=== PATIENT | male | born 1970 | race Hispanic/Latino ===

== ENCOUNTER 2017-07-20 15:46 | Inpatient (IN) | payer OTHER ==
[~2017-07-20] VITALS: Ht 162.6 cm; Wt 87.5 kg
[2017-07-20] MEDS ORDERED: ONDANSETRON HCL 4 MG/2 ML VIAL ONE (16:13)
[2017-07-20] MEDS ORDERED: SODIUM CHLORIDE 0.9% 1000ML 1,000 ML IV ONE ×2 (16:13→18:59)
[2017-07-20] MEDS ORDERED: ACETAMINOPHEN 325 MG TAB ONE (16:13)
[2017-07-20 16:14] LABS: BASOPHILS % (AUTO) 0.1 % (0.0-5.0); HEMATOCRIT 43.7 % (42-54); LYMPHOCYTES % (AUTO) 4.3 % (21.0-51.0); MEAN CORPUSCULAR HEMOGLOBIN 31.7 pg (27.0-33.0); MEAN CORPUSCULAR HGB CONC 34.6 g/dL (32.0-36.0); MEAN CORPUSCULAR VOLUME 91.8 fL (79-99); MONOCYTES % (AUTO) 3.8 % (3.0-13.0); NEUTROPHILS % (AUTO) 91.8 % (40.0-77.0); PLATELET COUNT (AUTO) 206 K/uL (130-400); RED BLOOD CELL COUNT(AUTO) 4.76 MIL/uL (4.50-6.20); RED CELL DISTRIBUTION WIDTH 13.1 % (11.0-15.5)
[2017-07-20] MEDS ORDERED: MORPHINE SULFATE 2 MG/ML 1ML SYG ONE ×2 (16:14→16:30)
[2017-07-20 16:30] LABS: CREATININE 0.9 mg/dL (0.5-1.5); POTASSIUM 3.8 mmol/L (3.5-5.1)
[2017-07-20 16:34] LABS: ALBUMIN 4.2 g/dL (3.5-5.0); BILIRUBIN,TOTAL 0.6 mg/dL (0.2-1.0); TOTAL PROTEIN, SERUM 8.4 g/dL (6.0-8.3)
[2017-07-20 16:35] LABS: APPEARANCE,URINE Clear (CLEAR); BILIRUBIN,URINE Negative (NEGATIVE); COLOR,URINE Yellow (YELLOW); GLUCOSE, URINE (UA) Negative (NEGATIVE); KETONES,URINE Trace mg/dL (NEGATIVE); LEUKOCYTE ESTERASE ,URINE Negative (NEGATIVE); NITRATE,URINE Negative (NEGATIVE); OCCULT BLOOD,URINE Small (NEGATIVE); PROTEIN,URINE Negative (NEGATIVE)
[2017-07-20 16:46] LABS: WBC,URINE 0-1 /HPF (0-1)
[2017-07-20 16:47] LABS: BACTERIA,URINE Rare /HPF (None Seen); SQUAMOUS EPITHELIAL CELL,UR Rare /LPF (0-2)
[2017-07-20] MEDS ORDERED: IOPAMIDOL-370 75 ML VIAL IV ONE (16:59)
[2017-07-20] MEDS ORDERED: MEROPENEM 1 GM VIAL ONE (18:25)
[2017-07-20] MEDS ORDERED: HYDRALAZINE HCL 20 MG/ML VIAL IV PRN (22:30)
[2017-07-20] MEDS ORDERED: LIDOCAINE HCL-MPF 1% 2ML VIAL IVP PRN (22:30)
[2017-07-20] MEDS ORDERED: POTASSIUM CHLORIDE 20MEQ/100ML 100 ML IV PRN (22:30)
[2017-07-20] MEDS ORDERED: ONDANSETRON HCL 4 MG/2 ML VIAL IV PRN (22:30)
[2017-07-20] MEDS ORDERED: POTASSIUM CHLORIDE 20 MEQ ERTAB PO PRN (22:30)
[2017-07-20] MEDS ORDERED: POTASSIUM CHLORIDE 10% ELIXIR 20 MEQ/15 ML UDCUP PO PRN (22:30)
[2017-07-20] MEDS ORDERED: MEROPENEM 500MG+NS 50ML 50 ML IV SCH (22:30)
[2017-07-20 22:40] VITALS: BP 133/73
[2017-07-21] VITALS (29 sets, daily range): BP systolic 112–145; BP diastolic 60–88
[2017-07-21] MEDS: SODIUM CHLORIDE 0.9% 1000ML 1,000 ML IV SCH ×4 (00:37→22:04)
[2017-07-21] MEDS: KETOROLAC TROMETHAMINE 30MG/ML IV PRN ×2 (00:45→22:02)
[2017-07-21] MEDS ORDERED: LISI-613 PO (00:51)
[2017-07-21] MEDS ORDERED: ATOR10 PO (00:51)
[2017-07-21 03:56] LABS: CREATININE 0.8 mg/dL (0.5-1.5); MAGNESIUM 1.7 mg/dL (1.80-2.40); POTASSIUM 3.6 mmol/L (3.5-5.1)
[2017-07-21 04:01] LABS: MEAN CORPUSCULAR HGB CONC 34.8 g/dL (32.0-36.0); MEAN CORPUSCULAR VOLUME 91.9 fL (79-99); PLATELET COUNT (AUTO) 175 K/uL (130-400); RED BLOOD CELL COUNT(AUTO) 3.92 MIL/uL (4.50-6.20); RED CELL DISTRIBUTION WIDTH 13.2 % (11.0-15.5); WHITE BLOOD COUNT (AUTO) 11.6 K/uL (4.8-10.8)
[2017-07-21 05:38] LABS: INR 1.01 (0.85-1.15); PARTIAL THROMBOPLASTIN TIME 28.9 SEC (26.3-35.5); PROTHROMBIN TIME 10.6 SEC (9.6-11.6)
[2017-07-21] MEDS ORDERED: MEROPENEM 1 GM VIAL ONE (06:41)
[2017-07-21] MEDS: MORPHINE SULFATE 2 MG/ML 1ML SYG IV PRN (07:52)
[2017-07-21] MEDS ORDERED: MAGNESIUM 2GM PREMIX 50ML 50 ML IV SCH (08:00)
[2017-07-21] MEDS ORDERED: MEROPENEM 500 MG VIAL IVP SCH (08:15)
[2017-07-21] MEDS ORDERED: MAGNESIUM 2GM PREMIX 50ML 50 ML IV PRN (08:15)
[2017-07-21] MEDS: LISINOPRIL 10 MG TABLET PO SCH (08:19)
[2017-07-21] MEDS ORDERED: FAMOTIDINE/PF 20 MG/2 ML VIAL IV SCH (09:00)
[2017-07-21] MEDS ORDERED: DEXAMETHASONE SOD PHOSPHATE 10MG/ML 1ML VIAL ONE (11:57)
[2017-07-21] MEDS ORDERED: ONDANSETRON HCL 4 MG/2 ML VIAL ONE (11:57)
[2017-07-21] MEDS ORDERED: GLYCOPYRROLATE 0.2 MG/ML 5 ML VIAL ONE (11:57)
[2017-07-21] MEDS ORDERED: LIDOCAINE PF 2% 5ML ABBOJECT ONE (11:57)
[2017-07-21] MEDS ORDERED: NEOSTIGMINE METHYLSULFATE 1MG/ML IV ONE (11:57)
[2017-07-21] MEDS ORDERED: PROPOFOL 10 MG/ML 20ML VIAL IV ONE (11:57)
[2017-07-21] MEDS ORDERED: FENTANYL CITRATE PF 50 MCG/1 ML 2ML VIAL ONE ×3 (11:57→13:15)
[2017-07-21] MEDS ORDERED: SUCCINYLCHOLINE 200MG/10ML SYR ONE (11:57)
[2017-07-21] MEDS ORDERED: MIDAZOLAM HCL 1 MG/ML 2ML VIAL ONE (11:58)
[2017-07-21] MEDS ORDERED: BUPIVACAINE/PF 0.5% 30ML VIAL ONE (12:31)
[2017-07-21] MEDS ORDERED: ROCURONIUM BROMIDE 10MG/1ML 5ML VL ONE (13:15)
[2017-07-21] MEDS ORDERED: NEOSTIGMINE 5MG/5ML SYR IV ONE (13:15)
[2017-07-21] MEDS ORDERED: MEPERIDINE-PF 50 MG/ML SYG ONE (14:07)
[2017-07-21] MEDS: ATORVASTATIN CALCIUM 10 MG TABLET PO SCH (20:16)
[2017-07-22 03:46] LABS: HEMATOCRIT 32.8 % (42-54); MEAN CORPUSCULAR HEMOGLOBIN 32.6 pg (27.0-33.0); MEAN CORPUSCULAR HGB CONC 35.2 g/dL (32.0-36.0); MEAN CORPUSCULAR VOLUME 92.7 fL (79-99); PLATELET COUNT (AUTO) 173 K/uL (130-400); RED BLOOD CELL COUNT(AUTO) 3.54 MIL/uL (4.50-6.20); RED CELL DISTRIBUTION WIDTH 13.4 % (11.0-15.5); WHITE BLOOD COUNT (AUTO) 12.5 K/uL (4.8-10.8)
[2017-07-22 03:50] VITALS: BP 110/64
[2017-07-22 03:53] LABS: CREATININE 0.7 mg/dL (0.5-1.5); POTASSIUM 4.2 mmol/L (3.5-5.1)
[2017-07-22] MEDS: SODIUM CHLORIDE 0.9% 1000ML 1,000 ML IV SCH (06:43)
[2017-07-22 07:00] VITALS: BP 103/65
[2017-07-22] MEDS: LISINOPRIL 10 MG TABLET PO SCH (09:07)
[2017-07-22] MEDS: METRONIDAZOLE 500MG/100ML BAG 100 ML IV SCH ×3 (09:08→23:56)
[2017-07-22] MEDS: LEVOFLOXACIN 500 MG/D5W 100 ML 100 ML IV SCH (10:16)
[2017-07-22 11:05] VITALS: BP 115/66
[2017-07-22] MEDS ORDERED: SODIUM CHLORIDE 0.9% 1000ML 1,000 ML IV SCH (13:50)
[2017-07-22 15:00] VITALS: BP 136/88
[2017-07-22 20:00] VITALS: BP 106/58
[2017-07-22] MEDS: ATORVASTATIN CALCIUM 10 MG TABLET PO SCH (20:18)
[2017-07-22 23:43] VITALS: BP 119/66
[2017-07-23 04:00] VITALS: BP 105/59
[2017-07-23 06:17] LABS: HEMATOCRIT 31.8 % (42-54); MEAN CORPUSCULAR HEMOGLOBIN 32.1 pg (27.0-33.0); MEAN CORPUSCULAR HGB CONC 34.7 g/dL (32.0-36.0); MEAN CORPUSCULAR VOLUME 92.4 fL (79-99); PLATELET COUNT (AUTO) 168 K/uL (130-400); RED BLOOD CELL COUNT(AUTO) 3.45 MIL/uL (4.50-6.20); RED CELL DISTRIBUTION WIDTH 13.5 % (11.0-15.5); WHITE BLOOD COUNT (AUTO) 8.2 K/uL (4.8-10.8)
[2017-07-23 06:26] LABS: CREATININE 0.8 mg/dL (0.5-1.5); POTASSIUM 3.9 mmol/L (3.5-5.1)
[2017-07-23 07:35] VITALS: BP 122/74
[2017-07-23] MEDS ORDERED: LEVO500T2 PO (07:49)
[2017-07-23] MEDS ORDERED: METR500T PO (07:49)
[2017-07-23] MEDS ORDERED: TRAM50TA2 PO (07:49)
[2017-07-23] MEDS: METRONIDAZOLE 500MG/100ML BAG 100 ML IV SCH ×3 (09:03→23:54)
[2017-07-23] MEDS: LEVOFLOXACIN 500 MG/D5W 100 ML 100 ML IV SCH (09:03)
[2017-07-23] MEDS: LISINOPRIL 10 MG TABLET PO SCH (09:03)
[2017-07-23] MEDS: MORPHINE SULFATE 2 MG/ML 1ML SYG IV PRN (09:50)
[2017-07-23 11:25] VITALS: BP 104/61
[2017-07-23 16:16] VITALS: BP 121/74
[2017-07-23 19:20] VITALS: BP 118/74
[2017-07-23] MEDS: ATORVASTATIN CALCIUM 10 MG TABLET PO SCH (20:21)
[2017-07-23 23:40] VITALS: BP 128/79
[2017-07-24 03:55] VITALS: BP 119/66
[2017-07-24 08:00] VITALS: BP 123/70
[2017-07-24] MEDS: LISINOPRIL 10 MG TABLET PO SCH (08:51)
[2017-07-24] MEDS: METRONIDAZOLE 500MG/100ML BAG 100 ML IV SCH (08:51)
[2017-07-24] MEDS: LEVOFLOXACIN 500 MG/D5W 100 ML 100 ML IV SCH (08:51)
[2017-07-24 11:00] VITALS: BP 116/69
== END 2017-07-24 15:15 | disposition home or self-care (01) | DRG 343 ==
LOC: EDH 15:46 → EDHIP 18:25 → 3BH 22:15
PROVIDERS: ADMIT Internal Medicine; ATTEND Internal Medicine
PROC: 0DTJ4ZZ Resection of Appendix, Percutaneous Endoscopic Approach (ICD-10-PCS; principal; 2017-07-21 12:15)
DX: K35.80 Unspecified acute appendicitis (principal); D50.0 Iron deficiency anemia secondary to blood loss (chronic); E78.5 Hyperlipidemia, unspecified; I10 Essential (primary) hypertension; Z79.899 Other long term (current) drug therapy; Z80.3 Family history of malignant neoplasm of breast
CPT/HCPCS: 36415; 71045; 74177; 80048; 80053; 81001; 83690; 83735; 85025; 85027; 85610; 85730; 87804; 88304; A4218; J0330; J1100; J1885; J1956; J2001; J2175; J2185; J2250; J2405; J2704; J2710; J3010; J3475; J3490; J7030; Q9967